=== PATIENT | female | born 1945 | race Caucasian/White ===

== ENCOUNTER 2019-08-08 12:29 | Inpatient (IN) | payer MEDICARE, BC ==
[~2019-08-08] VITALS: Ht 160 cm; Wt 67.9 kg
[2019-08-09] VITALS (8 sets, daily range): BP systolic 106–134; BP diastolic 39–91; PULSE 55–77; TEMP 98.5
[2019-08-09] MEDS ORDERED: LEXAPRO20 MG PO (11:33)
[2019-08-09] MEDS ORDERED: K-TAB10 PO (11:34)
[2019-08-09] MEDS ORDERED: CEPHALEXIN500 M1 PO (11:35)
[2019-08-09] MEDS ORDERED: AMABELZ 0.5 MG1 EACH PO (11:37)
[2019-08-09] MEDS ORDERED: DEXEDRINE10 MG PO (11:38)
[2019-08-09] MEDS ORDERED: NORCO 325 MG-7.1 TAB PO (11:39)
[2019-08-09] MEDS ORDERED: HCTZ 25MG TAB25 MG PO (11:41)
[2019-08-09] MEDS ORDERED: VESICARE 5MG5 MG PO (11:41)
[2019-08-09] MEDS ORDERED: MYRBETR25MG PO (11:42)
[2019-08-09] MEDS ORDERED: MULTI VITAMINS1 TAB PO (11:43)
--- NOTE | 2019-08-09 18:00 | NUR ---
PATIENT IS ORIENTED BUT DROWSY POST OP. VSS. DENIES PAIN. LTH DRESSING IS CD&I WITH FOAM DRESSING AND ICE PACK INPLACE. TEDS & SCD'S TO BLE. NO GRAJEDA. PATIENT DENIES NEED TO VOID. IV FLUIDS INFUSING VIA PUMP INTO RIGHT HAND. HEAD TO TOE WNL. ORIENTED TO ROOM. CALL LIGHT IN REACH. SON AT BEDSIDE.
--- NOTE | 2019-08-09 20:00 | NUR ---
PATIENT RESTING IN BED DURING SHIFT CHANGE REPORT FROM DAY SHIFT NURSE. OBSERVED KAYE FOOT/TOE MOVEMENT ON COMMAND WITH REPORTING CAN FEEL LIGHT TOUCH TO BOTH FEET. SEE eMAR FOR PAIN MEDS GIVEN FOR 8/10 LEFT HIP PAIN. IVF INFUSING WITH NO PROBLEMS, DENIES URGE TO VOID, DENIES NAUSEA.
[2019-08-10] VITALS (9 sets, daily range): BP systolic 97–112; BP diastolic 47–56; PULSE 66–80; TEMP 97.5–99
--- NOTE | 2019-08-10 07:13 | NUR ---
Patient resting in bed during shift change report given to day nurse. No needs reported.
[2019-08-10 07:23] LABS: HEMOGLOBIN 10.5 g/dl (12.5-16.0)
--- NOTE | 2019-08-10 11:44 | NUR ---
PT UP TO BR WITH SBAX1. VOIDED AND RETURNED TO RECLINER. PO MEDS GIVEN PER PT REQUEST. PT EATING AND DRINKING WITH NO N/V.
--- NOTE | 2019-08-10 13:05 | NUR ---
KB met with the patient to discuss discharge plan. The patient lives alone in [place]. She states that her son, Cierra (ph#[phone]), lives in [place]. She reports independence with ADLs prior to surgery and has a 4WW, wheelchair, and cane. The patient's primary care provider is Veronica Barnhart PA-C and she receives her medications at the [facility] in [place]. She reports no difficulties obtaining her meds. The patient does not have advanced directives in EMR, but she states that she does have them completed. She states that her son, Cierra, is her DPOA-HC. The patient had a LTH and states that she is leaning towards post-acute rehab, due to living alone. KB presented and explained the Patient Choice Form and provided her with Medicare.gov's list of SNF's. The patient chose 1) [facility] 2) [facility]. Patient Choice Form signed by the patient and she was provided a copy. The patient states that if [facility] is unable to accept, then she would really just prefer to return home on Wednesday then. KB contacted and faxed a referral to both facilities. Caryl, at [facility], reports that they are able to accept the patient for a skilled stay. KB to inform the patient and will continue to follow.
--- NOTE | 2019-08-10 19:07 | NUR ---
REPORT TO MAURI LANG.
--- NOTE | 2019-08-10 20:45 | NUR ---
Report received. 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 Assessment complete. VS stable. A&Ox3. Aquacell dressing to left hip-C/D/I. INT to Left Forearm flushes without difficulty. SCDs/TEDs bilat. Fresh ice pack applied to left hip. C/O pain to left hip-rating it 8/10-described as constant ache with occasional cramp/sharp pain. Howells given per dr order. Did discuss pain meds-states she is allergic to Oxycodone-added to list of allergies. Denies shortness of breath/nausea. Plan of care discussed for ambulation this shift. Verbalizes understanding. Call light in reach. Will continue to monitor.
--- NOTE | 2019-08-11 04:00 | NUR ---
Rested off and on this shift. Pain has been adequately controlled with PO medications. Ambulated in hallway with stand by assistx1. Tolerated well. Denies nausea/shortness of breath. Voiding without difficulty. Tolerating PO. Denies needs. Will monitor.
[2019-08-11 04:13] VITALS: BP 99/52; PULSE 72; TEMP 98
[2019-08-11] MEDS ORDERED: XARELTO10 MG PO (06:31)
[2019-08-11 07:20] LABS: HEMOGLOBIN 10.1 g/dl (12.5-16.0)
[2019-08-11 07:29] LABS: HEMATOCRIT 31.1 % (37.0-47.0)
--- NOTE | 2019-08-11 08:00 | NUR ---
PATIENT IS A&O, OCCATIONALLY DROWSY. VSS. PATIENT ASSISTED TO BATHROOM AND THEN BEDSIDE CHAIR WITH 1 ASSIST AND WALKER. GAIT STEADY. LTH DRESSING IS CD&I WITH AQUACEL. TEDS CURRENTLY OFF. POSITIVE PEDAL PULSES TO BLE. HEAD TO TOE WNL. AM MEDS GIVEN.
[2019-08-11 08:40] VITALS: BP 95/48; PULSE 74; TEMP 98.7
--- NOTE | 2019-08-11 09:37 | NUR ---
The patient is to tentatively discharge tomorrow, 08/12, to [facility] for a skilled stay. SW met with the patient and presented and explained the IM form. The patient verbalized understanding, signed, and she was provided a copy. SW to continue to follow.
[2019-08-11 12:29] VITALS: BP 100/50; PULSE 86; TEMP 99.2
[2019-08-11 15:27] VITALS: BP 107/50; PULSE 76; TEMP 98.3
[2019-08-11 20:00] VITALS: BP 104/54; PULSE 76; TEMP 98.2
--- NOTE | 2019-08-11 20:45 | NUR ---
Report received. 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 Assessment complete. A&Ox3. VS stable. C/O pain to left hip-described as a constant ache with intermittent throbbing-hydrocodone two tabs per dr order. Denies nausea/shortness of breath. Aquacell to left hip has rolled over on to self-replaced at this time. INT to left forearm flushes without difficulty. TEDs/SCDs bilat. Fresh ice pack applied. States she is excited to be discharged to [facility] tomorrow. Denies questions/concerns. Ambulated in castro for approx 150 feet. Tolerated well. Denies questions/concerns. Call light in reach. Will aide.
[2019-08-12 00:28] VITALS: BP 105/53; PULSE 89; TEMP 98.5
[2019-08-12 04:18] VITALS: BP 91/51; PULSE 70; TEMP 98.1
--- NOTE | 2019-08-12 05:00 | NUR ---
Rested well this shift. Pain has been adequately controlled with PO pain meds. Denies nausea/shortness of breath. Dressing C/D/I. TEDs/SCDs bilat. Ambulated in hallway last NOC. Voiding without difficulty. +Flatus. Denies needs. Call light in reach. Will monitor.
[2019-08-12 07:34] VITALS: BP 104/50; PULSE 69; TEMP 98
--- NOTE | 2019-08-12 11:02 | NUR ---
Patient sitting in bed upon shift assessment. Rating pain at about 4/10 in left hip and increasing from there with movement and ambulation. Patient is planning to discharge to [facility] today for a short term stay and then onto home from there. Patient has no further concerns at this time. Call light in reach.
--- NOTE | 2019-08-12 11:15 | NUR ---
SW coordinated patients discharge today to [facility] detention. SW contacted Dona who indicated that radhames will be transported at 2 0'clocl today. SW faxed over discharge paperwork and confirmed time with patients nurse.
[2019-08-12 11:58] VITALS: BP 105/52; PULSE 67; TEMP 98
[2019-08-12 12:45] VITALS: BP 105/52; PULSE 67; TEMP 98
--- NOTE | 2019-08-12 14:20 | NUR ---
Patient discharged to [facility] at [facility]. Report called to nurse Santillan. All discharge instructions printed and new scripts sent in packet to [facility]. All patient belongings packed up and sent with patient including patient's walker. Patient has no further questions regarding dishcarge. Patient wheeled out by [facility] employee accompanied by this fiction and nonfiction prose writer.
== END 2019-08-12 14:23 | DRG 470 ==
LOC: JCC 08-09 11:06
PROVIDERS: ADMIT Orthopaedic Surgery
PROC: 0SRB06A Replacement of Left Hip Joint with Oxidized Zirconium on Polyethylene Synthetic Substitute, Uncemented, Open Approach (ICD-10-PCS; principal; 2019-08-09 16:30)
DX: M16.12 Unilateral primary osteoarthritis, left hip (principal)
CPT/HCPCS: A9284; C1776; J2250; J2270; J2405; J2704; J2795; J3010; J7042; J7120

== ENCOUNTER → 2021-10-07 | Outpatient (CLI) | payer MEDICARE ==
[~2021-10-07] MED LIST: AMABELZ 0.5 MG1 EACH PO; CEPHALEXIN500 M1 PO; DEXEDRINE10 MG PO; HCTZ 25MG TAB25 MG PO; K-TAB10 PO; LEXAPRO20 MG PO; MULTI VITAMINS1 TAB PO; MYRBETR25MG PO; NORCO 325 MG-7.1 TAB PO; VESICARE 5MG5 MG PO; XARELTO10 MG PO
== END ==
LOC: MHCPAIN 12:51
DX: M47.816 Spondylosis without myelopathy or radiculopathy, lumbar region (principal); M53.3 Sacrococcygeal disorders, not elsewhere classified; M54.16 Radiculopathy, lumbar region
CPT/HCPCS: G0463